=== PATIENT | female | born 1985 | race Caucasian/White ===

== ENCOUNTER 2017-09-25 18:23 | Emergency (ER) | payer MEDICAID, SELFPAY ==
[2017-09-25 18:25] VITALS: BP 132/91; PULSE 91; RESP 19; TEMP 37.1; O2SAT 97; BMI 47.6
--- NOTE | 2017-09-25 18:50 | ED.VISSUMM ---
- ER Visit Summary Date of Service: 09/25/17 Chief Complaint: Cough History of Present Illness: The patient is a 32 F presenting with cough and migraine headache. Patient states she had a cough for 2 days. Cough is nonproductive. She has chills but no fever. She complains of mild shortness of breath. States she began having a migraine this morning. This gradually worsened throughout the day. She has a history of migraine headaches. She has chest pain only when she coughs. 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 Denies other complaints. Physical Examination: Vitals are stable. Patient is afebrile. Alert no acute distress. HEENT exam is unremarkable. Neck is supple. Lungs are clear and equal bilaterally. Heart is regular rate and rhythm. Abdomen is soft nontender nondistended. Extremities are unremarkable. Skin is warm and dry. No focal neurologic deficit. Remainder of exam is unremarkable. Emergency Department Course and Treatment: Patient given Compazine, Benadryl IV with improvement. Chest x-ray shows mild bilateral perihilar interstitial thickening which appears chronic. No acute infiltration. On repeat evaluation, patient feels improved. Her headache has improved. She is given a prescription for Tessalon Perles. She is advised to follow-up with Dr. Patel application support engineer for no doc. Advised return to ED if worsening complaints. Disposition: Discharge home Impression: Bronchitis, migraine headache This note was generated with [employer] dictation software. It may contain incorrect words, spelling, and punctuation that were not noted in review of the chart prior to signing ED Disposition - Plan for ED Patient: Chief Complaint: Cold Sx Referrals: Care Physician,No Primary [Primary Care Provider] -
--- NOTE | 2017-09-25 18:55 | RAD_ITS ---
STUDY: X-RAY CHEST REASON FOR EXAM: Female, 32 years old. Cough TECHNIQUE: AP COMPARISON: June 25, 2014 FINDINGS: There is mild bilateral perihilar interstitial thickening.. There is no demonstrated pleural abnormality. Normal size heart. Normal mediastinum and evelyn. Normal visualized pulmonary arteries. Normal visualized aortic arch and descending thoracic aorta. Normal visualized thoracic spine. Normal visualized ribs, clavicles, and shoulders. There is no demonstrated abnormality of the visualized soft tissue structures of the upper abdomen. No significant change since prior study RAD/Chest 1 View (Portable) IMPRESSION: Mild bilateral perihilar interstitial thickening which appears chronic. No acute infiltration Electronically Signed: William Quiñonez MD at 19:17 EDT , Service support ,
[2017-09-25] MEDS: DiphenhydrAMINE 50 MG/ML Syringe 25 MG IV (18:59)
[2017-09-25] MEDS: proCHLORPERazine 10 MG/2 ML Vial IV (18:59)
--- NOTE | 2017-09-25 19:55 | ED.DEP ---
ED Disposition - Plan for ED Patient: Chief Complaint: Cold Sx Instructions: ED Upper Resp Infec No Abx Tx Prescriptions: Benzonatate [Tessalon Perle] 200 mg PO TID PRN PRN #20 capsule PRN Reason: Cough Referrals: Care Physician,No Primary [Primary Care Provider] - Diana Patel MD [STAFF PHYSICIAN] -
[2017-09-25 20:01] VITALS: BP 114/65; PULSE 102; O2SAT 94
== END 2017-09-25 20:02 | disposition home or self-care (01) ==
PROVIDERS: Emergency Provider Emergency Medicine
DX: J40 Bronchitis, not specified as acute or chronic (principal); G43.909 Migraine, unspecified, not intractable, without status migrainosus; Z85.850 Personal history of malignant neoplasm of thyroid; Z79.899 Other long term (current) drug therapy
CPT/HCPCS: 71045; 96374; 96375; 99283; A4216

== ENCOUNTER 2021-06-13 12:53 | Emergency (ER) | payer MEDICAID, SELFPAY ==
[2021-06-13 12:54] VITALS: BP 125/71; PULSE 103; RESP 18; TEMP 36; O2SAT 98; BMI 52.9
--- NOTE | 2021-06-13 13:05 | EKG12_ITS ---
Test Reason : Blood Pressure : / mmHG Vent. Rate : 090 BPM Atrial Rate : 090 BPM P-R Int : 146 ms QRS Dur : 088 ms QT Int : 376 ms P-R-T Axes : 039 029 051 degrees QTc Int : 459 ms Normal sinus rhythm Normal ECG Confirmed by DAMIR HAND, GARY ([id number]), associate entertainment editor BERNARDINO RAMESH ([id number]) on 06/16/2021 9:50:32 AM Referred By: KEV Confirmed By:GARY REICH MD
--- NOTE | 2021-06-13 13:07 | EDS_ITS ---
HPI History of Present Illness Chief Complaint: General Illness Informant: patient Onset/Context/Timing Onset: Yesterday Current Severity: Moderate Maximum Severity: Moderate Narrative Narrative: Patient presents secondary to chest pain, short of breath, chills, body aches, headache. Symptoms started yesterday. She denies known exposure to COVID. She is not vaccinated. [facility] Medical History Hypothyroid Home Medications benzonatate 200 mg PO TID PRN PRN #20 capsule 09/25/17 [Rx Last Taken Unknown] levothyroxine 300 mcg PO DAILY 09/25/17 [History Last Taken Unknown] Allergy/AdvReac Type Severity Reaction Status Date / Time Penicillins Allergy Rash Verified 06/13/21 12:54 acetaminophen AdvReac Chest Verified 06/13/21 12:54 [From Tylenol-Codeine] tightness codeine phosphate AdvReac Chest Verified 06/13/21 12:54 [From Tylenol-Codeine] tightness cyclobenzaprine HCl AdvReac Other Verified 06/13/21 12:54 [From Flexeril] naproxen AdvReac Vomiting Verified 06/13/21 12:54 tramadol HCl [From Ultram] AdvReac Nausea Verified 06/13/21 12:54 Social History Smoking Status: Former smoker ROS ROS ED Constitutional Constitutional ED: Reports chills Eyes Eyes: Denies change in vision ENT ENT ED: Denies sore throat Cardiovascular Cardiovascular: Reports chest pain Respiratory/Chest Respiratory/Chest: Reports cough and dyspnea; Denies sputum Gastrointestinal Gastrointestinal: Denies abdominal pain, diarrhea, nausea or vomiting Genitourinary Genitourinary ED: Denies dysuria Musculoskeletal Musculoskeletal: Reports myalgias; Denies back pain Integumentary Denies rash Neurologic Neurologic: Reports headache(s) and weakness Allergic/Immunologic Allergic/Immunologic ED: Denies urticaria EXAM Physical Exam Const Vital Signs: 06/13/21 12:54 Temperature 96.8 F L Temperature Source Temporal Pulse Rate 103 H Respiratory Rate 18 Blood Pressure 125/71 H Blood Pressure Mean 89 Pulse Ox 98 Oxygen Delivery Method Room Air Positive well nourished and well developed General Appearance ED: well developed HEENT Reports moist mucous membranes Eyes PERRL and EOMs intact bilaterally Neck no lymphadenopathy and supple Chest Wall inspection of chest normal and palpation of chest normal Resp normal respiratory effort and clear to auscultation bilaterally Cardio regular rate and regular rhythm GI non-tender Palpation: soft Extremity normal to inspection Neuro oriented x3 Sensorium / Orientation: alert Psych mental status grossly normal Skin no rashes or lesions noted MDM MDM MDM Narrative Medical decision making narrative: Patient was given 500 cc IV fluid bolus along with Toradol. Lab work, chest x-ray, EKG, COVID test obtained. Lab Data Attestation: I reviewed the patient's lab results. Labs: Laboratory Results - last 24 hr 06/13/21 06/13/21 06/13/21 13:42 13:42 13:42 WBC 4.3 L RBC 4.33 Hgb 11.9 L Hct 37.0 MCV 85.5 MCH 27.5 MCHC 32.2 RDW Std Deviation 42.5 RDW Coeff of Tam 13.6 Plt Count 245 MPV 8.7 Immature Gran % (Auto) 0.700 Neut % (Auto) 81.6 H Lymph % (Auto) 5.6 L Roosevelt % (Auto) 10.4 H Eos % (Auto) 1.2 Baso % (Auto) 0.5 Absolute Neuts (auto) 3.5 Absolute Lymphs (auto) 0.24 L Nucleated RBC % 0 Sodium 138 Potassium 4.1 Chloride 103 Carbon Dioxide 28.0 Anion Gap 7 BUN 10 Creatinine 0.76 Estim Creat Clear Calc 92.08 Est GFR (MDRD) Af Amer 111 Est GFR (MDRD) Non-Af 92 BUN/Creatinine Ratio 13.2 Glucose 125 H Calcium 8.2 L Troponin I High Sens 6 Serum , Qual NEGATIVE Rapid COVID: Positive Radiography Chest X-Ray - ED: 1 View, Read by ED Physician and Chronic Changes (Atelectasis versus scarring left midlung, similar to prior) Diagnostic Testing: Clinical Impression(s) from Imaging Studies Chest X-Ray 06/13/21 13:08 IMPRESSION: Normal x-ray examination of the chest. Electronically Signed: Donal Fuller MD at 13:56 EST Tel , Service support , EKG Initial EKG: Attestation: I personally reviewed and interpreted this EKG as follows: Interpretation: Sinus Rhythm (Sinus at 90 with no acute ischemia.) Treatment and Re-Evaluation Comments:: On repeat evaluation patient resting comfortably. O2 sat is 95% on room air. Lab work reviewed and consistent with viral infection. Troponin negative. Patient's COVID test is positive. Chest x-ray reveals no focal infiltrate at this time. I did discuss monoclonal antibodies with her and she is interested in this. Order will be sent and they will call her for scheduling. I did encourage her to obtain a pulse ox and watch her oxygen level at home. Otherwise she is to continue supportive care. Symptom onset occurred: 06/12/2021 Positive COVID-19 test occurred: 06/13/2021 The FDA has authorized the emergency use of monoclonal antibody treatment (bamlanivimab/etesevimab or casirivimab/imdevimab) for mild to moderate COVID-19 in adults and pediatric patients with positive results of direct SARS?Cov?2 viral testing ages 12 and older, at least 40 kg, who are at high risk for progressing to severe COVID-19 and or hospitalization. The significant known and potential risks (allergic reactions, worsening of symptoms after treatment, or side effects from injection including brief pain, bleeding, bruising of the skin, soreness, swelling, possible infection at the infusion site) and benefits (decrease chance of progression to severe COVID-19) of a monoclonal antibody infusion, and the extent to which such potential risks and benefits are unknown. Note that worsening symptoms after treatment may occur but it is unknown whether these symptoms are related to treatment or are due to the progression of COVID-19. Worsening symptoms may include: fever, difficulty breathing, rapid or slow heart rate, tiredness, weakness or confusion. If these symptoms occur, patients are encouraged to seek immediate medical attention. These treatments are still being studied, all possible side effects may not be listed or known at this time. Patients treated with monoclonal antibody infusion should continue to self- isolate and use infection control measures (such as wear mask, isolate, social distance, avoid sharing personal items, clean and disinfect high touch surfaces, and frequent handwashing) according to the CDC guidelines. The fact sheet for patients, parents and caregivers will be provided prior to the administration of the medication. No drugs are approved by the FDA at this time to treat outpatients with mild or moderate symptoms of COVID-19. In addition to IV monoclonal antibodies, there are oral medications that have received authorization from the FDA to treat m [id number] COVID-19 in patients at high risk for progression to severe COVID-19. These medications may not be appropriate for all patients and available drug supply may be limited. However, these oral medications may be more effective against the omicron variant. The following information was communicated to the patient or caregiver: Monoclonal antibody infusion for COVID-19 is not an FDA approved drug. The FDA has authorized the emergency use of monoclonal antibody therapy. The patient had the option to refuse or accept treatment with monoclonal antibody therapy. The patient was informed that the number of people treated with monoclonal antibody therapy at this time is small. The potential benefits and the potential risks of monoclonal antibody therapy are not fully known. Potential benefits of monoclonal antibody include a reduced risk of progressing to severe COVID-19 infection. Potential risks or side effects of monoclonal antibody therapy include allergic reactions, side effects from injection including brief pain, bleeding, bruising of the skin, soreness, swelling, possible infection at the infusion site and worsening of symptoms. Due to the changes in the virus that causes COVID-19, some monoclonal antibody treatments may not be effective for all forms of the virus (known as variants). This includes the omicron variant. The patient stated understanding of this information communicated and wished to proceed with monoclonal antibody infusion therapy. Current symptoms include: Shortness of breath, cough (productive versus nonproductive), fever, headache, nausea/vomiting, body aches, chills, general malaise, loss of taste or smell, sneezing, nasal congestion. Discharge Plan Triage Chief Complaint: General Illness ED Provider: Pratibha Davies Dx/Rx/DC Orders Clinical Impression: COVID-19 Instructions: Coronavirus Disease 2019 (COVID-19): Overview, Coronavirus Disease 2019 (COVID-19): Caring for Yourself or Others Prescriptions: No Action levothyroxine 150 MCG tablet 300 mcg PO DAILY RF: 0 benzonatate 100 MG capsule 200 mg PO TID PRN PRN (Reason: Cough) Qty: 20 RF: 0 Stand Alone Forms: Monoclonal Antibody Referral Primary Care Provider: Care Physician,No Primary Referrals: Diana Patel MD [STAFF PHYSICIAN] - 1-2 Weeks Care Physician,No Primary [Primary Care Provider] - Disposition Disposition: Home, Self Care
--- NOTE | 2021-06-13 13:08 | RAD_ITS ---
STUDY: X-RAY CHEST REASON FOR EXAM: Female, 36 years old. sob TECHNIQUE: Single AP portable view of the chest. COMPARISON: 09/25/2017 FINDINGS: The lungs are clear and expanded. There is no demonstrated pleural abnormality. Normal size heart. Normal mediastinum and evelyn. Normal visualized pulmonary arteries. Normal visualized aortic arch and descending thoracic aorta. Normal visualized thoracic spine. Normal visualized ribs, clavicles, and shoulders. There is no demonstrated abnormality of the visualized soft tissue structures of the upper abdomen. RAD/Chest 1 View (Portable) IMPRESSION: Normal x-ray examination of the chest. Electronically Signed: Donal Fuller MD at 13:56 EST Tel , Service support ,
[2021-06-13 13:55] LABS: Absolute Lymphocyte Count 0.24 X10^3/uL (0.83-4.51); Absolute Neutrophil Count 3.5 X10^3/uL (2.0-7.7); Basophil# 0.02 X10^3/uL; Basophil% 0.5 % (0-1); Eosinophil# 0.05 X10^3/uL; Eosinophils% 1.2 % (0-5); Hemoglobin 11.9 g/dL (12.0-15.0); Lymphocyte # 0.24 X10^3/ul (0.83-4.51); Lymphocyte % 5.6 % (19-41); Mean Corp Hgb Conc 32.2 g/dL (32-36); Mean Corpuscular Hgb 27.5 pg (27.0-32.0); Mean Corpuscular Volume 85.5 fL (81-99); Mean Platelet Vol. 8.7 fl (6.2-12.0); Monocyte# 0.44 X10^3/uL; Monocyte% 10.4 % (0-10); NRBC Flagged by Analyzer 0 % (0-5); Neutrophil # 3.47 X10^3/uL (2.7-7.7); Neutrophil % 81.6 % (47-70); POSITIVE DIFFERENTIAL YES; Platelet Count 245 K/mm3 (150-450); RBC Distribution Width CV 13.6 % (11.6-14.6); RBC Distribution Width SD 42.5 fl (35.1-43.9); Red Blood Count 4.33 M/mm3 (4.2-5.4); White Blood Count 4.3 K/mm3 (4.4-11.0)
[2021-06-13] MEDS: Ketorolac 30 MG/ML Syringe IV (13:58)
[2021-06-13 14:08] LABS: Anion Gap 7 (5-15); BUN 10 mg/dL (7-18); BUN/Creat Ratio 13.2 RATIO (10-20); Calcium,Total 8.2 mg/dL (8.5-10.1); Chloride 103 mmol/L (98-107); Creatinine, Serum 0.76 mg/dL (0.55-1.02); Differential Indicated SCAN CRITERIA MET; EST Glomerular Filtration Rate 92 mL/min (>60); Est Glom Filt Rate - Afr Amer 111 mL/min (>60); Estimated Creatinine Clearance 92.08 ml/min; Glucose 125 mg/dL (74-106); Potassium 4.1 mmol/L (3.5-5.1); Sodium Level 138 mmol/L (136-145); Troponin-I HS 6 pg/mL (3.0-54.0)
[2021-06-13 14:25] LABS: Internal QC Validated? YES +Cl - CLEAR BKGD; Pregnancy, Serum, hCG Quali. NEGATIVE Negative
[2021-06-13 14:38] LABS: Differential Comment SCANNED
[2021-06-13 14:58] VITALS: PULSE 88; O2SAT 94
[2021-06-14 14:32] LABS: Pathologist Review Reviewed
== END 2021-06-13 15:03 | disposition home or self-care (01) ==
PROVIDERS: Emergency Provider Emergency Medicine; Visit Provider Emergency Medicine
DX: U07.1 COVID-19 (principal); Z87.891 Personal history of nicotine dependence; E03.9 Hypothyroidism, unspecified; Z79.899 Other long term (current) drug therapy
CPT/HCPCS: 71045; 80048; 84484; 84703; 85025; 87426; 93005; 96361; 96374; 99284; J7030; A4216